=== PATIENT | male | born 1955 | race Caucasian/White ===

== ENCOUNTER 2024-01-22 11:06 | Emergency (ER) | payer MEDICARE, BC, SELFPAY ==
[2024-01-22 11:11] VITALS: BP 130/83; PULSE 88; RESP 16; TEMP 36.4; O2SAT 96; BMI 30.3
--- NOTE | 2024-01-22 11:40 | ED_ITS ---
HPI - General Adult General Date Seen: 01/22/24 Chief complaint: Cough Stated complaint: Coughing, painful throat Time Seen by Provider: 01/22/24 11:14 Source: patient Mode of arrival: ambulatory Limitations: no limitations History of Present Illness HPI narrative: Patient is a 68-year-old here with his for evaluation of sore throat, cough, congestion. Symptoms have been present for the past several days, it sounds like cough was more predominant in the past few days but this morning he says he woke up with a terrible sore throat. He took some Sudafed, has not taken anything for pain. No reported fevers. No chest pain or shortness of breath. He says Thanksgiving is in a couple of days any really needs to be better by then. Related Data Home Medications ?Medication ?Instructions ?Recorded ?Confirmed aspirin 81 mg capsule 81 mg PO DAILY 01/22/24 01/22/24 lisinopril 10 1 tab PO DAILY 01/22/24 01/22/24 mg-hydrochlorothiazide 12.5 mg tablet Previous Rx's ?Medication ?Instructions ?Recorded prednisone 20 mg tablet 20 mg PO BID #10 tabs 01/22/24 Allergies Allergy/AdvReac Type Severity Reaction Status Date / Time sulfamethoxazole (From Allergy Unknown Verified 01/22/24 11:15 ) trimethoprim (From ) Allergy Unknown Verified 01/22/24 11:15 Review of Systems Status of ROS: Reports: 6 or more systems reviewed and unremarkable except as noted in History and below Exam Narrative: Exam Narrative: Vital signs reviewed In general, alert, nontoxic elderly male. Breathing easily. Head: Normocephalic, atraumatic. Eyes: Sclera clear. Pupils equal and reactive. ENT: Mucous membranes moist. Throat is erythematous but no exudate or edema, no evidence of abscess. Nares slightly congested. Voice is slightly hoarse, but he does not have a hot potato voice. Neck: Supple without adenopathy. Heart: Regular rate and rhythm without murmur. Lungs: Clear. No increased work of breathing, crackles or wheezes. Extremities: Well perfused, pulses intact. No significant edema. Neurologic: Alert, conversant. Speech fluent, face symmetric. Moves all extremities equally. Skin: Warm, dry well perfused. Affect: Normal. Const: Vital Signs, click to edit/add: Vital Signs - 24 hr 01/22/24 11:11 Temperature 97.5 F L Pulse Rate [Pulse Oximeter] 88 Respiratory Rate 16 Blood Pressure [Ri ght Upper Arm] 130/83 Pulse Oximetry 96 Oxygen Delivery Me thod Room Air Documenting provider has reviewed patient's vital signs: yes Course Course ED Course: Testing for COVID, RSV and influenza is negative. Strep is negative. Chest x- ray by my review is negative for infiltrate, read as negative by Radiology as well, link below. Symptoms are likely viral, discussed that his immune system will continue to work on this for him, if he is feeling worse rather than better has significant shortness of breath, high fevers or other worsening he should be seen again. Otherwise, supportive care, primary care follow-up if not improving over the next week. Vital Signs Vital signs: Initial Vital Signs Temperature 97.5 F L 01/22/24 11:11 Temperature Source Oral 01/22/24 11:11 Pulse Rate 88 01/22/24 11:11 Respiratory Rate 16 01/22/24 11:11 Blood Pressure 130/83 01/22/24 11:11 Blood Pressure Mean 98 01/22/24 11:11 Blood Pressure Position Sitting 01/22/24 11:11 Pulse Oximetry 96 01/22/24 11:11 Oxygen Delivery Method Room Air 01/22/24 11:11 Vital Signs Temperature 97.5 F L 01/22/24 11:11 Pulse Rate 88 01/22/24 11:11 Respiratory Rate 16 01/22/24 11:11 Blood Pressure 130/83 01/22/24 11:11 Pulse Oximetry 96 01/22/24 11:11 Oxygen Delivery Method Room Air 01/22/24 11:11 Temperature 97.5 F L 01/22/24 11:11 Pulse Rate 88 01/22/24 11:11 Respiratory Rate 16 01/22/24 11:11 Blood Pressure 130/83 01/22/24 11:11 Pulse Oximetry 96 01/22/24 11:11 Oxygen Delivery Method Room Air 01/22/24 11:11 Medical Decision Making Lab Data Labs: Lab Results 01/22/24 Range/Units 11:18 SARS-CoV-2 (PCR) Negative SARS-CoV-2 (Negative) Influenza Type A (PCR) Negative PCR FLU A (Negative) Influenza Type B (PCR) Negative PCR FLU B (Negative) RSV (PCR) Negative PCR RSV (Negative) Group A Strep DNA NOT DETECTED (Not Detectd) Imaging Data Chest x-ray: Attestation: I have reviewed the pertinent imaging results. Radiologist's impression: [address] [address] Diagnostic Imaging Report Patient: James Koroma MR#: [id number] : 1955 Acct:[id number] Loc: ED Service Date: 01/22/[address]: Ordering Physician: Shira Conrad M.D. Date of Service: 01/22/24 Procedure(s): XR chest 2V Accession Number(s): [id number] cc: Shira Conrda M.D.; Nolan Banuelos M.D.~ For Patients: As a result of the Cures Act, medical imaging exams and procedure reports are released immediately into your electronic medical record. You may view this report before your referring provider. If you have questions, please contact your health care provider. INDICATION: Cough. TECHNIQUE: Chest 2 views. COMPARISON: None. FINDINGS: Cardiovascular and mediastinum: Heart size and vasculature are normal in caliber and appearance. Lungs and pleural spaces: Lungs are clear. No sign of infiltrate or mass. No sign of pleural effusion. No pneumothorax. Bones and soft tissues: No significant findings. IMPRESSION: No acute or significant findings. Dictated by Kyree Bingham MD @ 01/22/2024 12:10:56 PM Discharge Plan Discharge Clinical Impression: Pharyngitis, Upper respiratory infection Patient Disposition: Home, Self-Care Condition: Stable Instructions: Pharyngitis (ED), Upper Respiratory Infection (DC) Additional Instructions: Your test today are all normal. There is no evidence that this is COVID, influenza, RSV, strep or pneumonia. I do not see anything that is likely to respond antibiotics. Symptoms are likely viral and will improve over a total of 7-10 days. I would recommend that you use your Tylenol, 1000 mg 3 times daily to help with sore throat and other aches and pains. I am prescribing some prednisone to see if that helps your cough and scratchy throat. If you are worsening, cannot swallow secretions, have high fevers, difficulty breathing or other worsening, come back to the ER for re-evaluation. Otherwise, see primary care if not improved over 7-10 days. Prescriptions: New prednisone 20 mg tablet 20 mg PO BID Qty: 10 0RF No Action lisinopril-hydrochlorothiazide 10-12.5 mg tablet 1 tab PO DAILY aspirin 81 mg capsule 81 mg PO DAILY Follow Up/Referrals: Nolan Banuelos MD [Primary Care Provider] - Stand Alone Forms: [employer] Info Instructions
--- OUTSIDE RECORDS SUMMARY | 2024-01-22 11:48 | XMS_ITS | Clinical Summary ---
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 Gender Identity Not on file Sexual Orientation Not on file Last Filed Vital Signs Vital Sign Reading Time Taken Comments Blood Pressure 132/78 07/11/2017 8:58 PM CDT Pulse 82 07/11/2017 8:58 PM CDT Temperature 37.3 C (99.2 F) 07/11/2017 8:57 PM CDT Respiratory Rate 20 07/11/2017 8:58 PM CDT Oxygen Saturation 97% 07/11/2017 8:58 PM CDT Inhaled Oxygen Concentration - - Weight 79.4 kg (175 lb) 07/11/2017 8:58 PM CDT Height 162.6 cm (5' 4) 07/11/2017 8:58 PM CDT Body Mass Index 30.04 07/11/2017 8:58 PM CDT Plan of Treatment Not on file Insurance [facility] Care Teams Aircraft Armorer Relationship Specialty Start Date End Date No Ref-Primary, Physician PCP - General Clinic 07/11/17
--- OUTSIDE RECORDS SUMMARY | 2024-01-22 11:48 | XMS_ITS | Referral Summary ---
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
--- OUTSIDE RECORDS SUMMARY | 2024-01-22 11:48 | XMS_ITS | Clinical Summary ---
Author Organization [email or web address] [facility] Address [place], [place] [address] Care Team Providers Care Vp Biology Name Role Phone Nolan Banuelos MD Primary Care Provider Allergies Active Allergy Reactions Criticality Noted Date Comments Sulfamethoxazole-Trimethoprim Rash 2007 Medications Medication Sig Dispensed Refills Start Date End Date Status omeprazole (PRILOSEC OTC) 20 mg tabletIndications: Gastroesophageal reflux disease without esophagitis Take 1 tablet by mouth once daily. 90 tablet 3 02/12/2018 Active sildenafil citrate (VIAGRA) 50 mg tabletIndications: Erectile dysfunction, unspecified erectile dysfunction type Take 1 Tablet (50 mg) by mouth once daily if needed for Erectile Dysfunction. Take 30min to 4 hours before sexual activity. Max 100mg/24hr 4 Tablet 6 01/11/2023 Active aspirin 81 mg cap Take by mouth. Act du lisinopril-hydroch lorothiazide (10-12.5 mg) tablet (PRINZIDE; ZESTORETIC)Indicat ions:Essential hypertension TAKE 1 TABLET BY MOUTH EVERY DAY 90 Tablet 01/16/2024 Active lisinopril-hydroch lorothiazide (10-12.5 mg) tablet (PRINZIDE; ZESTORETIC)Indicat ions:Essential hypertension Take 1 Tablet by mouth once daily. 90 Tablet 3 01/11/2023 4 Discontinued Active Problems Problem Noted Date Diagnosed Date Erectile dysfunction 09/15/2022 Obesity (BMI 30.0-34.9) 07/06/2021 Family history of early CAD 01/15/2013 Unspecified essential hypertension 12/08/2011 Other specified gastritis without mention of hem orrhage Overview (03/19/2010): 02/07/[address] Foss Esophagogastroduodenoscopy with biopsy - The patient should continue on a proton pump inhibitor Indefinitely. ....... SHREYA YAÑEZ RN, 03/19/2010 3:28 PM GERD (gastroesophageal reflux disease) Prediabetes Resolved Problems Problem Noted Date Diagnosed Date Resolved Date Routine adult health maintenance 07/08/2013 04/17/2019 Overview (07/08/2013): Colonoscopy 06/2013 normal repeat in 10 years Encounters Date Type Department Care Team Description 01/21/2024 Telephone [facility] [address] [place] [address] Nolan Banuelos MD REQUESTING CALL 01/13/2024 Refill [facility] [address] [place] [address] Nolan Banuelos MD Refill Request (Lisinopril-hydrochloro thiazide 10 Mg-12.5 Mg) from Last 3 Months Immunizations Name Administration Dates Next Due COVID-19 vaccine ([employer] 30mcg/0.3mL) PF, MDV 06/24/2020,06/01/2020 Influenza RIV4 (Age 18+ Years) PRESERV FREE 01/27 Influenza, IIV3 (Age >=3 years) 01/15/2013 Influenza, IIV4 02/12/2018,02/16/2017,02/10/2016 Pneumococcal Poly,23-Valent (Pneumovax) 09/17/19 21 Td (Age >=7 Years) 02/05/2004 Tdap 07/11/2017,07/20/2012 Zoster (Zostavax-ZVL, live) 05/24/2013 Family History Medical History Relation Name Comments Heart Disease Brother 1 fatal [place] - age 56 Heart Disease Brother 2 Jordi Stroke Brother 2 Jordi Alcohol/Drug Father Cancer Father pancreatic canc er ?? Hyperlipidemia Mother Cancer-colon Neg. 1 Cancer-prostate Neg. 2 Relation Name Status Comments Brother 1 Brother 2 Jordi Father Mother Neg. 1 Neg. 2 Social History Tobacco Use Types Packs/Day Years Used Date Smoking Tobacco: Never Smokeless Tobacco: Never Tobacco Cessation:Counseling Given: No Alcohol Use Standard Drinks/Week Comments Yes 0 (1 standard drink = 0.6 oz pur e alcohol) 1 to 2 per week PHQ-2 Answer Date Recorded PHQ-2 TOTAL SCORE 1 01/11/2023 Social Connections Answer Date Recorded Do you often feel lonely or isolated from those around you? 0 01/11/2023 Financial Resource Strain Answer Date R ecorded Difficulty of Paying Living Expenses 3 01/11/2023 Difficulty of Paying Living Expenses Not on file 01/11/2023 Food Insecurity Answer Date Recorded Do you worry your food will run out before you are able to buy more? 1 01/11/2023 Transportation Needs Answer Date Record ed Does lack of transportation keep you from medica l appointments? 1 01/11/2023 Does lack of transportation keep you from work, meetings or getting things that you need? 1 01/11/2023 Housing Stability Answer Date Recorded What is your housing situation today? 1 01/11/2023 Sex and Gender Information Value Date Recorded Sex Assigned at Not on file Gender Identity Not on file Sexual Orientation Not on file Obstetrics History Last Filed Vital Signs Vital Sign Reading Time Taken Comments Blood Pressure 121/79 08/01/2023 12:34 PM CDT Pulse 90 08/01/2023 12:34 PM CDT Temperature 36.7 C (98 F) 08/01/2023 12:34 PM CDT Respiratory Rate 20 06/08/2020 10:29 AM CDT Oxygen Saturation 95% 08/01/2023 12:34 PM CDT Inhaled Oxygen Concentration - - Weight 85.7 kg (189 lb) 08/01/2023 12:34 PM CDT Height 163.1 cm (5' 4.21) 01/11/2023 2:01 PM CS T Body Mass Index 32.23 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 Plan of Treatment Upcoming Encounters Date Type Department Care Team (Late st Contact Info) Description 02/15/2024 2:30 PM 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 PLAYER Office Visit [facility] [address] [place] [address] Nolan Banuelos MD [address] [place] [address] Health Maintenance Due Date Last Done Comments Zoster (shingles) series for age 50+ (2 of 3) 07/19/2013 05/24/2013 Pneumococcal series for age 65+ (2 of 2 - PCV) 09/16/2021 09/16/2020 Colonoscopy through age 75 07/09/2023 07/08/2013, COVID-19 vaccine series (3 - season) 2023 06/24/2020, 06/01/2020 Influenza for age 65+ 10/28/2023 02/14/2019 , 02/12/2018, 02/16/2017, Additional history exists BMI (ht and wt on same day) for age 18+ 01/12/2024 01/11/2023, 09/15/2022, 07/06/2021, Additional history exists Depression screening for age 12+ 01/12/2024 01/11/2023, 09/15/2022, 07/06/2021, Additional history exists Medicare Wellness for age 65+ 01/12/2024 01/11/2023, 07/06/2021 Tetanus booster 07/12/2027 07/11/2017, 06/27, 02/05/2004 Lipids for age 45-75 09/16/2027 09/15/2022, 02/12/2018, 02/16/2017, Additional history exists Hepatitis C screening for ag e 18-79 Completed 08/12/2014 Tdap Completed 07/11/2017, 07/20/2012 Procedures Procedure Name Priority Date/Time Associated Diagnosis Comments LIPID PANEL W REFLEX MEASURED LDL Routine 09/15/2022 10:30 AM CDT Lipid screening ANTI HCV Routine 08/12/2014 11:54 AM CDT Need for hepatitis C screening test from Last 3 Months or Most Recently Relevant to Health Maintenance Results * (ABNORMAL) LIPID PANEL W REFLEX MEASURED LDL (09/15/2022 10:30 AM CDT) CHOLESTEROL,TOTAL 175 100 - 199 mg/dL 09/16/2022 2:02 AM CDT [facility] Comment: Cholesterol, Total Reference Ranges Desirable <200 mg/dL Borderline 200-239 mg/dL High >=240 mg/dL TRIGLYCERIDES 166(H) <150 mg/dL 09/16/2022 2:02 AM CDT [facility] HDL CHOLESTEROL 34(L) >40 mg/dL 2:02 AM CDT [facility] NON-HDL CHOLESTEROL 141 <145 mg/dl 09/16/2022 2:02 AM CDT [facility] CHOL/HDL RATIO 5.15(H) <4.50 09/16/2022 2:02 AM CDT [facility] LDL CHOLESTEROL 108 <=130 mg/dL 09/16/2022 2:02 AM CDT [facility] VLDL CHOLESTEROL 33(H) <=30 mg/dL 09/16/2022 2:02 AM CDT [facility] PROVIDER ORDERED STATUS RANDOM 09/16/2022 2:02 AM CDT [facility] Blood BLOOD SPECIMEN / Unknown Venipuncture / Unknown 09/15/2022 10:30 AM CDT 09/15/2022 10:32 AM CDT Nolan Banuelos MD CHEMISTRY [facility] [address] [place] [address], [place] * ANTI HCV [[id number]] (08/12/2014 11:54 AM CDT) HEPATITIS C ANTIBODY Non-Reacti ve Non-Reacti ve 08/12/2014 7:33 PM CDT [facility] Blood specimen (specimen) BLOOD SPECIMEN / Unknown Venipuncture / Unknown 08/12/2014 11:54 AM CDT 08/12/2014 11:54 AM CDT Narrative [facility] - 08/12/2014 7:33 PM CDT Antibodies to HCV not detected; does not exclude the possibility of exposure to HCV. Nolan Banuelos MD [facility] [address] [place] [address], from Last 3 Months or Most Recently Relevant to Health Maintenance Care Teams Vp Biology Relationship Specialty Start Date End Date Nolan Banuelos MD [address] [place] [address] PCP - General Family Practice 02/26/11
[2024-01-22 11:51] LABS: Strep A DNA Probe* NOT DETECTED (Not Detectd)
[2024-01-22 12:03] LABS: PCR FLU A Negative PCR FLU A (Negative); PCR FLU B Negative PCR FLU B (Negative); PCR RSV Negative PCR RSV (Negative); SARS PCR* Negative SARS-CoV-2 (Negative)
== END 2024-01-22 12:36 | disposition home or self-care (01) ==
PROVIDERS: Emergency Provider Emergency Medicine; PCP Family Medicine
DX: J02.9 Acute pharyngitis, unspecified (principal); J06.9 Acute upper respiratory infection, unspecified
CPT/HCPCS: 71046; 87631; 87651; 99284